=== PATIENT | female | born 1940 | race Caucasian/White ===

== ENCOUNTER 2017-05-14 08:43 | Outpatient (CLI) | payer MEDICARE, OTHER ==
[2016-02-14 11:25] VITALS: BP 161/83
--- NOTE | 2017-05-14 14:24 | Diagnostic Imaging Report ---
BATOOL LUA [facility] [address] [facility] [address] [place], [place]. [address] Report Submission Date: May 14, 2017 11:11:49 AM CDT Patient Study Name: JUAN QUEZADA Date: May 14, 2017 9:32:17 AM CDT Modality Type: CT\SR Gender: F Description: CT LEG W/O CONTRAST : 42 Institution: [facility] Physician: BATOOL LUA Examination: CT extremity History: Possible mass identified on ultrasound Comparison exams: None provided Technique: Axial imaging with sagittal and coronal reconstruction Findings: Osseous cortical margins appear to be intact. Articular degenerative changes involving the hip and knee articulations. No evidence for expansile lesion. Generalized soft tissue edema involving the posterior and peripheral medial margin of he thigh. No obvious intramuscular compartment fluid collections. In the region of the femoral head there appears to be a moderate size joint effusion/soft tissue fullness. Extensive vascular calcifications Impression: Extremely limited study for soft tissue evaluation. Possible soft tissue fullness/joint effusion involving the hip articulation. No evidence for acute osseous acute process. Correlation with the previous ultrasound report would be beneficial to determine where the abnormality is located. In addition better assessment for soft tissue would be obtained with MRI - this examination is recommended if patient is clinically able. Additionally postcontrast imaging of the extremity could be performed with either CT or MRI which would beneficial in identifying a soft tissue lesion. Extensive vascular calcifications Electronically signed on May 14, 2017 11:11:49 AM CDT by: Tima CHRISTENSEN
== END 2017-05-14 08:44 ==
LOC: RAD 08:43
PROVIDERS: ATTEND Family Medicine
DX: I73.9 Peripheral vascular disease, unspecified (principal); R22.42 Localized swelling, mass and lump, left lower limb
CPT/HCPCS: 73700

== ENCOUNTER 2018-06-15 04:24 | Emergency (ER) | payer MEDICARE, OTHER ==
[2018-06-15 05:16] LABS: BASOPHILS % 0.3 (0.0-1.5); EOSINOPHILS % 0.2 % (0.0-6.8); MEAN CORPUSCULAR HEMOGLOBIN 29.8 pg (28.0-34.0); MEAN CORPUSCULAR VOLUME 98.9 fl (80.0-100.0); NEUTROPHILS # 17.9 # k/uL (1.4-7.7)
--- NOTE | 2018-06-15 05:24 | Diagnostic Imaging Report ---
HELADIO ROJAS (CONE PICKER) - ER [facility] [address] [facility].[address] [address] Report Submission Date: Jun 15, 2018 5:24:03 AM CDT Patient Study Name: JUAN QUEZADA Date: Jun 15, 2018 4:52:30 AM CDT Modality Type: DX Gender: F Description: CHEST : 41 Institution: [facility] Physician: HELADIO ROJAS (CONE PICKER) - ER HISTORY: 78-year-old female with altered mental status, shortness of breath, history of CHF. COMPARISON: None available. TECHNIQUE: Single portable AP view of the chest was performed. FINDINGS: There is diffuse prominence of the interstitial markings, greater centrally. No pneumothorax or consolidative infiltrates. The heart is enlarged. IMPRESSION: Cardiomegaly and prominence of the interstitial markings, consistent with CHF exacerbation. Electronically signed on Jun 15, 2018 5:24:03 AM CDT by: Roderick CHRISTENSEN
--- NOTE | 2018-06-15 05:24 | Diagnostic Imaging Report ---
HELADIO ROJAS (MENTAL HEALTH PROGRAM SPECIALIST) - ER [facility] [address] Pending [facility] To [facility] [address] [place], [place]. [address] Report Submission Date: Jun 15, 2018 5:22:41 AM CDT Patient Study Name: JUAN QUEZADA Date: Jun 15, 2018 4:48:54 AM CDT Modality Type: CT Gender: F Description: CT BRAIN W/O CONTRAST : 41 Institution: [facility] Physician: HELADIO ROJAS) - ER HISTORY: 78-year-old female with altered mental status. COMPARISON: None available. TECHNIQUE: Noncontrast axial CT images of the head were performed. Sagittal and coronal reformatted images were obtained. FINDINGS: There is mild global brain atrophy with prominence of the ventricular system and sulci. There is mild to moderate decreased attenuation in the periventricular white matter. No intracranial hemorrhage, mass, midline shift, hydrocephalus, or evidence of acute large vessel infarct. The mastoid air cells, middle ear spaces, and partially visualized paranasal sinuses are clear. Probable postoperative changes of bilateral cataract extraction. IMPRESSION: Global brain atrophy and chronic ischemic changes, without evidence of acute infarct or other acute intracranial process. Electronically signed on Jun 15, 2018 5:22:41 AM CDT by: Roderick CHRISTENSEN
[2018-06-15] MEDS ORDERED: LACTATED RINGERS 1,000 ML IV ONE (05:26)
[2018-06-15 05:32] LABS: eGFR (African) 11; eGFR (Non-African) 9
[2018-06-15] MEDS ORDERED: ASPIRIN 81 MG CHEW TAB PO ONE (05:35)
[2018-06-15] MEDS ORDERED: ASPIRIN 81 MG CHEW TAB ONE (05:36)
--- NOTE | 2018-06-15 05:50 | ED Physician Documentation ---
General Adult - HISTORIAN Historian: patient - HPI Stated Complaint: decreased LOC and O2 sat Chief Complaint: General Adult Further Comments: yes (78 year old female patient from [facility] brought in for altered) - ROS CONST: no problems EYES/ENT: none CVS/RESP: none GI/: none MS/SKIN/LYMPH: none NEURO/PSYCH: denies: headache - PAST HX Past History: CHF, hypertension, other (GERD, depression) Other History: diabetes Type 2 Surgeries/Procedures: hysterectomy Allergies/Adverse Reactions: Allergies Allergy/AdvReac Type Severity Reaction Status Date / Time No Known Allergies Allergy Verified 02/10/16 06:30 Home Medications: Ambulatory Orders Medication Instructions Recorded Mag Hydrox/Aluminum Hyd/Simeth 30 ml PO Q4 PRN 09/03/14 [Mylanta] Ondansetron HCl Rapdis [Zofran ODT] 4 mg PO PRN PRN 12/29/15 Acetaminophen [Tylenol] 650 mg PO Q4 PRN 02/10/16 Hydrochlorothiazide [Hydrodiuril] 25 mg PO DAILY 02/14/16 Lisinopril [Prinivil] 20 mg PO QD 02/14/16 Metoprolol Succinate [Toprol XL] 100 mg PO DAILY 02/14/16 Potassium Chloride [Klor-Con M20] 20 meq PO BID 02/14/16 Furosemide [Lasix] 40 mg PO D 06/15/18 Insulin Detemir [Levemir Flextouch] 5 units SQ HS 06/15/18 Metformin HCl [Glucophage] 500 mg PO BID 06/15/18 - SOCIAL HX Smoking History: non-smoker - FAMILY HX Family History: No - VITAL SIGNS Vital Signs: Vital Signs Temp Pulse Resp BP Pulse Ox 98.1 F 79 30 H 106/52 97 06/15/18 04:24 06/15/18 04:24 06/15/18 04:24 06/15/18 04:24 06/15/18 05:08 - REVIEWED ASSESSMENTS Nursing Assessment Reviewed: Yes Vitals Reviewed: Yes Progress - Progress Progress: WBC 20 - awaiting chemistry; no previous EKG Critical lab results called from lab. Sister at bedside. Explained critical condition. Recommended transfer to ICU. Sister prefers [facility]. 0550 Call to [facility]. [address] Shetty at [facility]; Orders for lasix 80mg; Calcium chloride, insulin, D50, bicarb and albuterol neb treatment due to patient's critical 7.7 K. 0625 Meds given; VS remain stable. Patient more alert, answering question; denies chest pain - EKG/XRAY/CT EKG: rhythm (SR with flipped T waves in Inferior and lateral leads; widen QRS, rate 71) ED Results Lab/Radiology - Lab Results Lab Results: Lab Results 06/15/18 06/15/18 06/15/18 05:05 05:04 05:04 WBC 20.40 K/ul H K/ul (4.00-12.00) RBC 3.30 M/ul L M/ul (3.90-5.20) Hgb 9.9 g/dL L g/dL (12.0-16.0) Hct 32.7 % L % (34.5-46.5) MCV 98.9 fl fl (80.0-100.0) MCH 29.8 pg pg (28.0-34.0) MCHC 30.2 g/dL g/dL (30.0-36.0) RDW 14.8 % H % (11.3-14.3) Plt Count 188 K/mm3 K/mm3 (130-400) Neut % (Auto) 87.5 % H % (39.0-79.0) Lymph % (Auto) 8.4 % L % (16.0-50.0) [place] % (Auto) 3.0 % % (0.0-11.0) Eos % (Auto) 0.2 % % (0.0-6.8) Baso % (Auto) 0.3 (0.0-1.5) Neut # (Auto) 17.9 # k/uL H # k/uL (1.4-7.7) Lymph # (Auto) 1.7 # k/uL # k/uL (0.6-4.0) [place] # (Auto) 0.6 # k/uL # k/uL (0.0-0.9) Eos # (Auto) 0.0 # k/uL # k/uL (0.0-0.6) Baso # (Auto) 0.1 # k/uL # k/uL (0.0-0.5) Reactive Lymphs % 0.6 % % (0.0-5.0) Reactive Lymphs # 0.1 # k/uL # k/uL (0.0-0.8) Sodium 132 mmol/L L mmol/L (136-145) Potassium 7.7 mmol/L H* mmol/L (3.5-5.1) Chloride 107 mmol/L mmol/L (98-107) Carbon Dioxide 10 mmol/L L mmol/L (22-30) BUN 93 mg/dL H mg/dL (7-17) Creatinine 5.00 mg/dL H mg/dL (0.52-1.04) Estimated Creat Clear 7 Est GFR ( Amer) 11 L (60 - ) Est GFR (Non-Af Amer) 9 L (60 - ) Glucose 308 mg/dL H mg/dL (74-106) Lactate Calcium 8.4 mg/dL mg/dL (8.4-10.2) Total Bilirubin < 0.1 mg/dL L mg/dL (0.2-1.3) AST 33 U/L U/L (15-46) ALT 24 U/L U/L (13-69) Alkaline Phosphatase 84 U/L U/L (38-126) Troponin I 4.46 ng/mL H ng/mL (0.03-0.06) NT-Pro-B Natriuret Pep Pending Total Protein 7.3 g/dL g/dL (6.3-8.2) Albumin 3.8 g/dL g/dL (3.5-5.0) 06/15/18 05:03 WBC RBC Hgb Hct MCV MCH MCHC RDW Plt Count Neut % (Auto) Lymph % (Auto) [place] % (Auto) Eos % (Auto) Baso % (Auto) Neut # (Auto) Lymph # (Auto) [place] # (Auto) Eos # (Auto) Baso # (Auto) Reactive Lymphs % Reactive Lymphs # Sodium Potassium Chloride Carbon Dioxide BUN Creatinine Estimated Creat Clear Est GFR ( Amer) Est GFR (Non-Af Amer) Glucose Lactate 5.6 U/L H U/L (0.7-2.1) Calcium Total Bilirubin AST ALT Alkaline Phosphatase Troponin I NT-Pro-B Natriuret Pep Total Protein Albumin - Radiology Radiology Impressions: CHEST XRAY HISTORY: 78-year-old female with altered mental status, shortness of breath, history of CHF. COMPARISON: None available. TECHNIQUE: Single portable AP view of the chest was performed. FINDINGS: There is diffuse prominence of the interstitial markings, greater centrally. No pneumothorax or consolidative infiltrates. The heart is enlarged. IMPRESSION: Cardiomegaly and prominence of the interstitial markings, consistent with CHF exacerbation. Electronically signed on Jun 15, 2018 5:24:03 AM CDT by: Roderick Green CT BRAIN W/O CONTRAST HISTORY: 78-year-old female with altered mental status. COMPARISON: None available. TECHNIQUE: Noncontrast axial CT images of the head were performed. Sagittal and coronal reformatted images were obtained. FINDINGS: There is mild global brain atrophy with prominence of the ventricular system and sulci. There is mild to moderate decreased attenuation in the periventricular white matter. No intracranial hemorrhage, mass, midline shift, hydrocephalus, or evidence of acute large vessel infarct. The mastoid air cells, middle ear spaces, and partially visualized paranasal sinuses are clear. Probable postoperative changes of bilateral cataract extraction. IMPRESSION: Global brain atrophy and chronic ischemic changes, without evidence of acute infarct or other acute intracranial process. Electronically signed on Jun 15, 2018 5:22:41 AM CDT by: Roderick Green - Orders Orders: ED Orders Category Date Time Status Continuous EKG monitoring Q30M Care 06/15/18 04:37 Active Continuous Pulse Oximetry Q30M Care 06/15/18 04:38 Active Lan [Urinary catheterization] 1T Care 06/15/18 05:44 Ordered In & Out Cath [Intermittent urinary catheteri] 1T Care 06/15/18 04:[address] IV Lock 1T Care 06/15/18 04:10 Active CHEST 1VIEW [RAD] Stat Exams 06/15/[address] BRAIN W/O CONTRAST Stat Exams 06/15/18 Completed BLOOD CULTURE Stat Lab 06/15/18 Ordered BNP [NT-proBNP] Stat Lab 06/15/18 05:04 Results CBC/PLATELET/DIFF Stat Lab 06/15/18 05:05 Completed CMP Stat Lab 06/15/18 05:04 Completed LACTATE Stat Lab 06/15/18 05:03 Received TROPONIN I (cTnI) Stat Lab 06/15/18 05:04 Results Aspirin Med 06/15/18 05:36 Discontinued 324 mg .ROUTE .STK-MED ONE Aspirin Med 06/15/18 05:35 Discontinued 324 mg PO NOW ONE Lactated Ringers [Ringers, Lactated] 1,000 ml Med 06/15/18 05:26 Discontinued IV .STK-MED EKG WITH COMPARISON Stat Ther 06/15/18 Ordered General Adult Physical Exam - PHYSICAL EXAM GENERAL APPEARANCE: lethargic EENT: eye inspection normal, DARCI RESPIRATORY: no resp distress, chest non-tender, rales (bilateral bases), other (RA Sat 77% placed on NRBM) CVS: reg rate & rhythm, heart sounds normal, no murmur ABDOMEN: soft, no organomegaly, normal bowel sounds, no abdominal bruit, no distension SKIN: warm/dry, pallor EXTREMITIES: non-tender, normal range of motion, no evidence of injury, no edema, J, POLYMER SPECIALIST NEURO: oriented X3, motor nml, sensation nml, other (somnolent) Discharge Clincal Impression: Acute hyperkalemia AMI (acute myocardial infarction) Qualifiers: Myocardial infarction type: non-ST elevation myocardial infarction Qualified Code(s): I21.4 - Non-ST elevation (NSTEMI) myocardial infarction Congestive heart failure (CHF) Qualifiers: Heart failure type: combined systolic and diastolic Heart failure chronicity: acute Qualified Code(s): I50.41 - Acute combined systolic (congestive) and diast olic (congestive) heart failure Acute renal failure Qualifiers: Acute renal failure type: unspecified Qualified Code(s): N17.9 - Acute kidney failure, unspecified Leukocytosis Qualifiers: Leukocytosis type: bandemia Qualified Code(s): D72.825 - Bandemia Referrals: Fabrizio Hook MD [Primary Care Provider] - 2 Days Condition: Critical Disposition: XFER SHT-TRM HOSP Decision to Admit: NO Decision Time: 06:39
[2018-06-15] MEDS ORDERED: INSULIN REGULAR, HUMAN 100 UNIT/ML 3ML VIAL ONE (06:10)
[2018-06-15] MEDS ORDERED: FUROSEMIDE 40 MG/4 ML VIAL ONE (06:10)
[2018-06-15] MEDS ORDERED: DEXTROSE 50% 50 ML DISP.SYRIN IVP ONE (06:10)
[2018-06-15] MEDS ORDERED: INSULIN REGULAR, HUMAN 100 UNIT/ML 3ML VIAL IV ONE (06:11)
[2018-06-15] MEDS ORDERED: CALCIUM GLUCONATE 100 MG/ML VIAL IV ONE (06:11)
[2018-06-15] MEDS ORDERED: ALBUTEROL SULFATE 2.5 MG/3 ML AMPUL.NEB NEB ONE (06:11)
[2018-06-15] MEDS ORDERED: SODIUM BICARBONATE 50 MEQ/50 ML SYRINGE IV ONE (06:11)
[2018-06-15] MEDS ORDERED: DEXTROSE 50% 50 ML DISP.SYRIN IVP PRN (06:11)
[2018-06-15] MEDS ORDERED: PHARMACY KEY 1 EACH EACH MC ONE (06:11)
[2018-06-15] MEDS ORDERED: SODIUM BICARBONATE 50 MEQ/50 ML SYRINGE ONE (06:12)
[2018-06-15] MEDS ORDERED: CALCIUM CHLORIDE ONE (06:21)
[2018-06-15] MEDS ORDERED: CALCIUM CHLORIDE IVP SCH (07:00)
[2018-06-15 07:11] VITALS: BP 125/47
[2018-06-16 10:14] LABS: OCCULT BLOOD,URINE 2+ (NEGATIVE); UROBILINOGEN URINE 0.2 Eu (0.2-1.0)
== END 2018-06-15 06:50 | disposition short-term general hospital (02) ==
LOC: ED 04:24
DX: I21.4 Non-ST elevation (NSTEMI) myocardial infarction (principal); I50.41 Acute combined systolic (congestive) and diastolic (congestive) heart failure; N17.9 Acute kidney failure, unspecified; D72.825 Bandemia; E87.6 Hypokalemia
CPT/HCPCS: 70450; 71045; 80053; 81002; 83605; 83880; 84484; 85025; 87040; 87086; 93005; 94640; 96374; 96375; 99285; J3490; S1016

== ENCOUNTER 2019-08-05 11:10 | Outpatient (CLI) | payer MEDICARE, OTHER ==
--- NOTE | 2019-08-20 10:10 | Diagnostic Imaging Report ---
DORITA FRENCH [facility] [address] [facility] [address] [address] Report Submission Date: Aug 05, 2019 1:06:08 PM CDT Patient Study Name: JUAN QUEZADA Date: Aug 05, 2019 11:22:18 AM CDT Modality Type: CT\SR Gender: F Description: CT R LEXT : 42 Institution: [facility] Physician: DORITA FRENCH Exam: CT of the right leg. History: Right lower leg pain for 3 days. Axial images through the right leg are submitted along with sagittal and coronal reformatted images. Diffuse osteoporosis about the leg is noted. Narrowing, sclerosis and juxta- articular osteoporosis at the knee and at the ankle are noted. Marked low attenuation to the surrounding musculature in the leg is noted suggestive of marked atrophy. A mild amount of cellulitis about the leg is noted. No abscess formation or mass or fluid collection is identified. Impression: Severe osteoporosis about the leg and at the knee joint and ankle joint suggestive of marked arthritic changes. Diffuse muscular atrophy is identified. Mild cellulitis. No other solid mass or fluid collections are identified. Electronically signed on Aug 05, 2019 1:06:08 PM CDT by: Aguilar CHRISTENSEN
== END 2019-08-05 11:25 ==
LOC: RAD 11:10
PROVIDERS: ATTEND Family Medicine
DX: S89.91XA Unspecified injury of right lower leg, initial encounter (principal); X58.XXXA Exposure to other specified factors, initial encounter
CPT/HCPCS: 73700